=== PATIENT | male | born 1990 | race Caucasian/White ===

== ENCOUNTER 2018-12-14 10:15 | Inpatient (IN) | payer BC, MEDICARE ==
[~2018-12-14] VITALS: Ht 182.9 cm; Wt 75.0 kg
[2018-12-14] MEDS ORDERED: magnesium hydroxide 30ml (MOM) UD suspension PO PRN (16:35)
[2018-12-14] MEDS ORDERED: acetaminophen 325mg tablet PO PRN ×2 (16:35)
[2018-12-14] MEDS ORDERED: mag hydrox/Alum hydrox/simeth 30ml oral suspension PO PRN (16:35)
[2018-12-14] MEDS ORDERED: loperamide 2mg capsule PO PRN (16:35)
[2018-12-14] MEDS ORDERED: LORazepam 1 MG tablet PO PRN (16:35)
[2018-12-14] MEDS ORDERED: OXCA600T9 PO (17:04)
[2018-12-14] MEDS ORDERED: LITH300T34 PO (17:04)
[2018-12-14] MEDS ORDERED: CLON-527 PO (17:04)
[2018-12-14] MEDS ORDERED: FLUO40CA10 PO (17:11)
[2018-12-14] MEDS ORDERED: BREX2TAB PO (17:11)
--- NOTE | 2018-12-14 17:57 | NUR ---
Mom & Dad Dong, cell phone # [phone]
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
[2018-12-14 20:00] VITALS: BP 125/75
[2018-12-14] MEDS: oxcarbazepine 150mg tablet PO SCH (22:07)
[2018-12-14] MEDS: clonazePAM 1mg tablet PO SCH (22:07)
[2018-12-14] MEDS: BREXPIPRAZOLE PO SCH (22:08)
[2018-12-14] MEDS: hydrOXYzine 25 MG tablet PO PRN (23:22)
[2018-12-15 07:25] LABS: HEMOGLOBIN A1C 4.7 % (4.5-6.2)
[2018-12-15 07:29] LABS: CHOL/HDL RATIO 4.9 (0.00-4.99); CHOLESTEROL 165 MG/DL (0-200); HDL CHOLESTEROL 34 MG/DL (35-60); LDL CHOLESTEROL 120 MG/DL (50-100); TRIGLYCERIDES 83 MG/DL (20-135)
[2018-12-15] MEDS: FLUoxetine 20mg capsule PO SCH (07:48)
[2018-12-15] MEDS: oxcarbazepine 150mg tablet PO SCH ×2 (07:48→21:32)
[2018-12-15] MEDS: lithium carbonate 300mg SR tablet (LithoBID) PO SCH (07:49)
[2018-12-15 08:00] VITALS: BP 107/62
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
[2018-12-15 20:00] VITALS: BP 130/68
[2018-12-15] MEDS: clonazePAM 1mg tablet PO SCH (21:31)
[2018-12-15] MEDS: BREXPIPRAZOLE PO SCH (21:32)
[2018-12-15] MEDS ORDERED: traZODone 50mg tablet PO PRN (21:41)
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
[2018-12-16] MEDS: FLUoxetine 20mg capsule PO SCH (07:38)
[2018-12-16] MEDS: lithium carbonate 300mg SR tablet (LithoBID) PO SCH (07:38)
[2018-12-16] MEDS: oxcarbazepine 150mg tablet PO SCH ×2 (07:39→21:23)
[2018-12-16 08:22] VITALS: BP 104/54
[2018-12-16] MEDS: hydrOXYzine 25 MG tablet PO PRN (13:24)
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
[2018-12-16 20:00] VITALS: BP 125/66
[2018-12-16] MEDS: clonazePAM 1mg tablet PO SCH (21:23)
[2018-12-16] MEDS: mirtazapine 15mg tablet PO SCH (21:24)
[2018-12-16] MEDS: BREXPIPRAZOLE PO SCH (21:24)
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
[2018-12-17] MEDS: FLUoxetine 20mg capsule PO SCH (07:43)
[2018-12-17] MEDS: oxcarbazepine 150mg tablet PO SCH ×2 (07:44→20:48)
[2018-12-17] MEDS: lithium carbonate 300mg SR tablet (LithoBID) PO SCH (07:44)
[2018-12-17 08:00] VITALS: BP 108/60
[2018-12-17] MEDS ORDERED: dextroamphetamine/amphetamine 5mg tablet PO SCH (08:00)
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
[2018-12-17 20:00] VITALS: BP 114/66
[2018-12-17] MEDS: clonazePAM 1mg tablet PO SCH (20:48)
[2018-12-17] MEDS: BREXPIPRAZOLE PO SCH (20:49)
[2018-12-17] MEDS: mirtazapine 15mg tablet PO SCH (20:49)
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
[2018-12-18] MEDS: lithium carbonate 300mg SR tablet (LithoBID) PO SCH (07:35)
[2018-12-18] MEDS: FLUoxetine 20mg capsule PO SCH (07:35)
[2018-12-18] MEDS: dextroamphetamine/amphetamine 5mg tablet PO SCH (07:35)
[2018-12-18] MEDS: oxcarbazepine 150mg tablet PO SCH ×2 (07:35→20:16)
[2018-12-18 08:00] VITALS: BP 114/74
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
[2018-12-18 19:55] VITALS: BP 125/61
[2018-12-18] MEDS: mirtazapine 15mg tablet PO SCH (20:16)
[2018-12-18] MEDS: clonazePAM 1mg tablet PO SCH (20:16)
[2018-12-18] MEDS: BREXPIPRAZOLE PO SCH (20:16)
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
[2018-12-19] MEDS: FLUoxetine 20mg capsule PO SCH (07:45)
[2018-12-19] MEDS: lithium carbonate 300mg SR tablet (LithoBID) PO SCH (07:46)
[2018-12-19] MEDS: dextroamphetamine/amphetamine 5mg tablet PO SCH (07:46)
[2018-12-19] MEDS: oxcarbazepine 150mg tablet PO SCH ×2 (07:46→20:40)
[2018-12-19 08:00] VITALS: BP 119/75
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
[2018-12-19] MEDS: hydrOXYzine 25 MG tablet PO PRN (19:41)
[2018-12-19 20:13] VITALS: BP 124/61
[2018-12-19] MEDS: desmopressin 0.1mg/ml nasal spray 5ml btl NS SCH (20:39)
[2018-12-19] MEDS: BREXPIPRAZOLE PO SCH (20:40)
[2018-12-19] MEDS: clonazePAM 1mg tablet PO SCH (20:40)
[2018-12-19] MEDS ORDERED: mirtazapine 15mg tablet PO SCH (21:00)
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
[2018-12-20] MEDS: lithium carbonate 300mg SR tablet (LithoBID) PO SCH (07:51)
[2018-12-20] MEDS: oxcarbazepine 150mg tablet PO SCH ×2 (07:51→20:42)
[2018-12-20] MEDS: FLUoxetine 20mg capsule PO SCH (07:51)
[2018-12-20 08:00] VITALS: BP 124/63
[2018-12-20] MEDS: dextroamphetamine/amphetamine 5mg tablet PO SCH (08:41)
[2018-12-20] MEDS ORDERED: dextroamphetamine/amphetamine 10mg tablet PO SCH (12:00)
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
[2018-12-20 19:35] VITALS: BP 119/63
[2018-12-20] MEDS: BREXPIPRAZOLE PO SCH (20:41)
[2018-12-20] MEDS: clonazePAM 1mg tablet PO SCH (20:42)
[2018-12-20] MEDS: desmopressin 0.1mg/ml nasal spray 5ml btl NS SCH (20:42)
[2018-12-20] MEDS ORDERED: AMPH15TA PO (20:44)
[2018-12-20] MEDS ORDERED: AMPH10TA19 PO (20:44)
[2018-12-20] MEDS ORDERED: OXCA600T9 PO (20:44)
[2018-12-20] MEDS ORDERED: BREX3TAB PO (20:44)
[2018-12-20] MEDS ORDERED: MIRT30TA8 PO (20:44)
[2018-12-20] MEDS ORDERED: HYDR50TA65 PO (20:44)
[2018-12-20] MEDS ORDERED: FLUO40CA10 PO (20:44)
[2018-12-20] MEDS ORDERED: LITH300T34 PO (20:44)
[2018-12-20] MEDS ORDERED: CLON-527 PO (20:44)
[2018-12-20] MEDS ORDERED: QUET50TA22 PO (20:44)
[2018-12-20] MEDS ORDERED: DESM10SP7 NS (20:44)
[2018-12-20] MEDS ORDERED: mirtazapine 15mg tablet PO SCH (21:00)
[2018-12-20] MEDS ORDERED: QUEtiapine 25mg tablet PO SCH (21:00)
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
[2018-12-21] MEDS: dextroamphetamine/amphetamine 5mg tablet PO SCH (07:34)
[2018-12-21] MEDS: FLUoxetine 20mg capsule PO SCH (07:35)
[2018-12-21] MEDS: oxcarbazepine 150mg tablet PO SCH (07:35)
[2018-12-21] MEDS: lithium carbonate 300mg SR tablet (LithoBID) PO SCH (07:35)
[2018-12-21 07:42] VITALS: BP 113/62
--- NOTE | 2018-12-21 11:54 | NUR ---
Initial: Pt admit w/ bipolar disorder PO 75-100% regular diet meeting needs. LB 12/20. No nutrition concerns at this time. Addendum: 12/21/18 at [address] Amended: Links added.
[2018-12-21] MEDS ORDERED: dextroamphetamine/amphetamine 5mg tablet PO SCH (12:00)
--- NOTE | 2018-12-21 14:07 | NUR ---
Discharge Note: 1405 patient accompanied off unit via WC and PCT. Parents waiting at elevator. All belongings, personal medications and new prescriptions given to patient. Discharge packet provided including followup information and discharge instructions. Upon discharge patient demonstrated a positive outlook, stating he is thankful his family found him when they did. Denies any SI, and states depression and anxiety significantly better.
== END 2018-12-21 14:05 | disposition home or self-care (01) | DRG 885 ==
LOC: ADULT MH 16:16
PROVIDERS: ADMIT Psychiatry & Neurology Psychiatry; ATTEND Psychiatry & Neurology Psychiatry
DX: F33.2 Major depressive disorder, recurrent severe without psychotic features (principal); R45.851 Suicidal ideations; E11.9 Type 2 diabetes mellitus without complications; F41.9 Anxiety disorder, unspecified; T42.4X2A Poisoning by benzodiazepines, intentional self-harm, initial encounter; T40.2X2A Poisoning by other opioids, intentional self-harm, initial encounter; G47.00 Insomnia, unspecified; F84.0 Autistic disorder; I10 Essential (primary) hypertension; Z79.899 Other long term (current) drug therapy; Z81.8 Family history of other mental and behavioral disorders; Z88.0 Allergy status to penicillin; Z91.5 Personal history of self-harm; Z88.2 Allergy status to sulfonamides; Y92.89 Other specified places as the place of occurrence of the external cause
CPT/HCPCS: 36415; 80061; 83036; 87081; 99285; Z7610